=== PATIENT | male | born 1995 | race African-American/Black ===

== ENCOUNTER 2017-01-31 19:00 | Emergency (ER) | payer OTHER ==
[~2017-01-31] VITALS: Ht 180.3 cm; Wt 86.2 kg
--- NOTE | 2017-01-31 19:30 | ED.ADGEN ---
Adult General Chief Complaint Chief Complaint " .. They were trying to do a root canal.. .. and could not finish it.. now the numbing has gone away... it is really hurting... " [facility] HPI Patient is a 21 year old male who presents with dental pain. Patient complaints of severe pain on percussion of 19. There is some edema and adenopathy at ankle of jaw. No trismus.. Patient is normally healthy. Patient up-to-date with vaccinations. No recent travel. No significant contacts. Patient AT [place]. Has reportedly follow-up appointment with dentist. Patient currently has no home pain meds and patient currently not on antibiotics. Review of Systems Review of Systems Constitutional: Denies fever or chills [] Eyes: Denies change in visual acuity, redness, or eye pain [] HENT: Denies nasal congestion or sore throat [] complaints of dental pain Respiratory: Denies cough or shortness of breath [] Cardiovascular: No additional information not addressed in HPI [] GI: Denies abdominal pain, nausea, vomiting, bloody stools or diarrhea [] : Denies dysuria or hematuria [] Musculoskeletal: Denies back pain or joint pain [] Integument: Denies rash or skin lesions [] Neurologic: Denies headache, focal weakness or sensory changes [] Endocrine: Denies polyuria or polydipsia [] Family History Family History Noncontributory Current Medications Current Medications See nursing for home meds Current Medications Medications (Trade) Dose Ordered Sig/Yajaira Start Time Stop Time Status Last Admin Dose Admin Ketorolac Tromethamine (Toradol) 60 mg 1X ONCE 01/31/17 20:30 01/31/17 20:31 DC 01/31/17 20:30 60 MG Allergies Allergies Allergies Coded Allergies Type Severity Reaction Last Updated Verified No Known Drug Allergies 01/31/17 No Physical Exam Physical Exam Constitutional: Well developed, well nourished, in acute distress, non-toxic appearance. [] HENT: Normocephalic, atraumatic, bilateral external ears normal, oropharynx moist, severe dental pain in area of tooth 19, no oral exudates, nose normal. [] Eyes: PERRLA, EOMI, conjunctiva normal, no discharge. [] Neck: Normal range of motion, no tenderness, supple, no stridor. [] Cardiovascular:Heart rate regular rhythm, no murmur [] Lungs & Thorax: Bilateral breath sounds clear to auscultation [] Abdomen: Bowel sounds normal, soft, no tenderness, no masses, no pulsatile masses. [] Skin: Warm, dry, no erythema, no rash. [] Back: No tenderness, no CVA tenderness. [] Extremities: No tenderness, no cyanosis, no clubbing, ROM intact, no edema. [] Neurologic: Alert and oriented X 3, normal motor function, normal sensory function, no focal deficits noted. [] Psychologic: Affect anxious,, judgement normal, mood normal. [] Current Patient Data Vital Signs Vital Signs Date Time Temp Pulse Resp B/P Pulse Ox O2 Delivery O2 Flow Rate FiO2 01/31/17 20:20 98.6 88 18 97 01/31/17 19:10 Room Air EKG EKG [] Radiology/Procedures Radiology/Procedures [] Course & Med Decision Making Course & Med Decision Making Pertinent Labs and Imaging studies reviewed. (See chart for details) Take amoxicillin 500 mg 3 times a day for 10 days. Take Tylenol and ibuprofen for discomfort. For marked pain may take Vicoprofen 1-2 mg up 4 times a day. Must keep dental follow-up. Keep follow-up with primary care. [] Final Impression Final Impression 1. Dental pain [] Problems: Dragon Disclaimer Dragon Disclaimer This electronic medical record was generated, in whole or in part, using a voice recognition dictation system. COURTNEY ALANIZ MD Jan 31, 2017 19:30
[2017-01-31] MEDS ORDERED: HYDR-79 PO (19:45)
[2017-01-31] MEDS ORDERED: AMOX250C PO (19:45)
[2017-01-31 20:20] VITALS: BP 120/66
[2017-01-31] MEDS ORDERED: KETOROLAC 60 MG/2 ML VIAL. IM ONE (20:30)
== END 2017-01-31 20:25 | disposition home or self-care (01) ==
LOC: ER 19:00
DX: K08.89 Other specified disorders of teeth and supporting structures (principal); R59.9 Enlarged lymph nodes, unspecified
CPT/HCPCS: 96372; 99283; J1885